=== PATIENT | female | born 1970 | race Caucasian/White ===

== ENCOUNTER 2016-12-17 21:02 | Emergency (ER) | payer MEDICAID ==
[2016-12-17 23:44] VITALS: BP 114/75
== END 2016-12-17 23:45 | disposition home or self-care (01) ==
LOC: ED 21:02
DX: M79.644 Pain in right finger(s) (principal); M79.89 Other specified soft tissue disorders; E11.9 Type 2 diabetes mellitus without complications; J45.909 Unspecified asthma, uncomplicated; Z79.84 Long term (current) use of oral hypoglycemic drugs
CPT/HCPCS: 90715

== ENCOUNTER 2018-05-14 23:21 | Emergency (ER) | payer SELFPAY ==
[~2018-05-14] VITALS: Ht 157.5 cm; Wt 95.3 kg
[2018-05-14 23:26] VITALS: Ht 157.5 cm; Wt 95.3 kg
[2018-05-15 01:19] VITALS: BP 119/57
== END 2018-05-15 01:19 | disposition home or self-care (01) ==
LOC: ED 23:21
DX: J45.901 Unspecified asthma with (acute) exacerbation (principal); R07.89 Other chest pain; E11.9 Type 2 diabetes mellitus without complications
CPT/HCPCS: J1885; J7512; J7620